=== PATIENT | male | born 1985 | race Caucasian/White ===

== ENCOUNTER 2019-03-11 02:43 | Emergency (ER) | payer OTHER | END 2019-03-11 06:05 | disposition home or self-care (01) | LOC: FTE 02:43 | DX: S02.40DA Maxillary fracture, left side, initial encounter for closed fracture (principal); S02.2XXA Fracture of nasal bones, initial encounter for closed fracture; Y04.0XXA Assault by unarmed brawl or fight, initial encounter | CPT/HCPCS: 70450; 70486; 99284-25 ==